=== PATIENT | male | born 2005 | race Caucasian/White ===

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

== ENCOUNTER 2025-02-17 14:21 | Outpatient (CLI) | payer OTHER, SELFPAY ==
--- NOTE | ~2025-02-17 | CT_ITS ---
EXAMINATION: CT soft tissue neck w con DATE: 02/17/2025 14:51 INDICATION: Localized enlarged lymph nodes. TECHNIQUE: Computed tomography (CT) of the neck was performed with 75 mL Omnipaque-350 intravenous contrast. Automated exposure control and iterative reconstruction technique were employed. The dose-length product was 540.10 mGy-cm. COMPARISON: Ultrasound 12/25/2024 FINDINGS: There is mucosal thickening in the paranasal sinuses. The mastoid air cells are normal. There are no pathologically enlarged lymph nodes. The cervical carotid arteries are normal. The bones are unremarkable. IMPRESSION: 1. No lymphadenopathy. Reviewed, dictated and finalized at location E. IMPRESSION: 1. No lymphadenopathy.
--- OUTSIDE RECORDS SUMMARY | 2025-02-17 18:08 | XMS_ITS | Clinical Summary ---
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 Gender Identity Not on file Sexual Orientation Not on file Obstetrics History Growth Chart Information Age Height Weight Tcavam-fku-pbob th Percentile BMI Percentile Head Circum Head [...] 53.1 kg (117 lb) 88.65%* 2017 * [facility] (Boys, 2-20 Years) Last Filed Vital Signs [...] 07/05/2023 01/04/2023 Covid-19 Vaccine (4 - season) 2024 06/21/2021, 10/01/2020, 09/10/2020 Influenza Vaccine (#1) 2024 [...] patient's age to complete this topic Insurance [facility] [id number] Member Subscriber Plan / Payer (Ef fective 2023-Present) Name:Mohamud Alexander Member ID:[id number] Relation to Subscriber:Child Name:Tu Alexander Subscriber ID:[id number] Date of :1966 Address[address] [address] [place], [place] [address] [address] Payer ID:[id number] Type:[employer] HMO/PPO Address: [employer] CLAIMS [address] [place] [address] [facility] [employer] [facility] [id number] Member Subscriber Plan / Payer (Ef fective 2023-Present) Name:Mohamud Alexander Member ID:[id number] Relation to Subscriber:Self Name:Mohamud Alexander Subscriber ID:[id number] Payer ID:[id number] Type:[employer] HMO/PPO Address: [employer] [address] [place] [address] [employer] Care Teams Firer Bisque Kiln Relationship Specialty Start Date End Date Yani Yuen MD PCP - General 09/25/17
--- OUTSIDE RECORDS SUMMARY | 2025-02-17 18:08 | XMS_ITS | Clinical Summary ---
Author Organization [facility] Address [address] [place] [address] Care Team Providers Care Local Delivery Driver Name Role Phone Yani Yuen MD Primary Care Provider [phone] Source Comments [facility],non-owned Affiliates and Associated Physician Practices is amultiple site organization consisting of ambulatory clinics and hospital sitesin [place], [place]. This disclosure is being madepursuant to the Care Everywhere program and may not contain all information available regarding this patient. Last updated 18.[facility] Allergies No known active allergies Medications * Be aware that medications may not be up to date on this document. Alwaysverify current medications with the patient. No known medications Active Problems No known active problems Immunizations Immunization Administration Dates Next Due INFLUENZA VACCINE, TRIV. (AF LURIA, FLUZONE TRIVALENT; 6MO+) (IIV3) 03/17/2010 Covid [employer] primary monoval ent 12+ yr 0.3mL Purple [...] on file Legal Sex Male 6:41 AM RN CORRECTIONS Gender Identity Not on file Sexual Orientation [...] - Bexsero SCDM 2-dose series) 07/05/2023 01/04/2023 DEPRESSION SCREENING 04/30/2024 01/04/2023, 12/01/19 COVID-19 VACCINE (4 - 2024-2 6 season) 2024 06/21/2021, 10/01/2020, 09/10/2020 INFLUENZA VACCINE (#1) 2024 , 03/17/2010, 03/26/2007 [...] 11:21 AM CDT) Jesenia Johnson, RN Insurance [facility] Care Teams Local Delivery Driver Relationship Specialty Start Date End Date Yani Yuen MD PCP - General Pediatrics 05/31/13
== END 2025-02-17 14:22 | disposition home or self-care (01) ==
PROVIDERS: PCP Family Medicine; Visit Provider Otolaryngology
DX: R59.0 Localized enlarged lymph nodes (principal); K11.20 Sialoadenitis, unspecified
CPT/HCPCS: 70491; Q9967